=== PATIENT | female | born 1955 | race Caucasian/White ===

== ENCOUNTER 2023-01-25 10:29 | Outpatient (CLI) | payer MEDICARE | END 2023-01-25 23:59 | disposition home or self-care (01) | LOC: RAD 10:29 | PROVIDERS: ATTEND Nurse Practitioner Primary Care | DX: Z01.810 Encounter for preprocedural cardiovascular examination (principal) | CPT/HCPCS: 93005 ==

== ENCOUNTER 2023-11-12 10:46 | Outpatient (CLI) | payer MEDICARE | END 2023-11-12 23:59 | disposition home or self-care (01) | LOC: RAD 10:46 | PROVIDERS: ATTEND Orthopaedic Surgery Adult Reconstructive Orthopaedic Surgery | DX: Z01.810 Encounter for preprocedural cardiovascular examination (principal); R53.83 Other fatigue | CPT/HCPCS: 93005 ==